=== PATIENT | male | born 1975 | race Caucasian/White ===

== ENCOUNTER 2017-06-30 16:22 | Emergency (ER) | payer BC ==
[~2017-06-30] VITALS: Ht 185.4 cm; Wt 120.0 kg
[2017-06-30] MEDS ORDERED: TEST200V21 IM (16:46)
[2017-06-30 17:16] LABS: BASOPHILS # (AUTO) 0.03 x10^3/uL (0-0.1); BASOPHILS % (AUTO) 0 % (0-1); EOSINOPHILS # (AUTO) 0.03 x10^3/uL (0-0.4); EOSINOPHILS % (AUTO) 0 % (1-7); LYMPHOCYTES # (AUTO) 0.86 x10^3/uL (1-3.4); LYMPHOCYTES % (AUTO) 6 % (22-44); MD NO; MEAN CORPUSCULAR HEMOGLOBIN 29.8 pg (27.5-34.5); MEAN CORPUSCULAR HGB CONC 34.2 g/dL (33.2-36.2); MEAN CORPUSCULAR VOLUME 86.9 fL (81-97); MEAN PLATELET VOLUME 9.3 fL (7.4-10.4); MONOCYTES # (AUTO) 1.02 x10^3/uL (0.2-0.8); MONOCYTES % (AUTO) 7 % (2-9); NEUTROPHILS # (AUTO) 11.88 x10^3/uL (1.8-6.8); NEUTROPHILS % (AUTO) 86 % (42-75); PLATELET COUNT 260 x10^3/uL (130-400); RED BLOOD COUNT 5.51 x10^6/uL (4.38-5.82); RED CELL DISTRIBUTION WIDTH 15.2 % (9.4-14.8)
[2017-06-30 17:24] LABS: ALANINE AMINOTRANSFERASE 69 U/L (12-78); ALBUMIN 3.7 g/dL (3.4-5.0); ANION GAP 10 mmol/L (5-15); CALCIUM 8.7 mg/dL (8.5-10.1); CHLORIDE 109 mmol/L (98-107); CREATININE 1.44 mg/dL (0.7-1.3)
[2017-06-30 17:29] LABS: ALKALINE PHOSPHATASE 42 U/L (45-117); BILIRUBIN,TOTAL 1.5 mg/dL (0.2-1.0); TOTAL PROTEIN 7.3 g/dL (6.4-8.2); TROPONIN I 0.063 ng/mL (0.000-0.045)
[2017-06-30 18:11] VITALS: BP 109/63
== END 2017-06-30 18:12 | disposition home or self-care (01) ==
LOC: ED 17:07
DX: R07.2 Precordial pain (principal); F14.10 Cocaine abuse, uncomplicated; Z79.82 Long term (current) use of aspirin
CPT/HCPCS: 36415; 71045; 80053; 84484; 85025; 93005; 99285

== ENCOUNTER 2020-01-07 12:34 | Outpatient (CLI) | payer BC ==
[~2020-01-07 12:34] MED LIST: TEST200V21 IM
[2020-01-07] MEDS ORDERED: LIDOCAINE-MPF 1%, 5ML ONE (12:43)
[2020-01-07] MEDS ORDERED: ROPivacaine/PF 0.2%, 10 ML ONE (12:44)
[2020-01-07] MEDS ORDERED: SODIUM BICARBONATE 4.2%, 5ML ONE (12:45)
[2020-01-07] MEDS ORDERED: OMNIPAQUE 300 MG/ML, 10ML VIAL ONE (13:51)
[2020-01-07] MEDS ORDERED: GADOTERATE 2.5 MMOL/5 ML VIAL ONE (13:51)
== END 2020-01-07 23:59 | disposition home or self-care (01) ==
LOC: RAD 12:34
PROVIDERS: ATTEND Nurse Practitioner
DX: M25.511 Pain in right shoulder (principal); S46.011A Strain of muscle(s) and tendon(s) of the rotator cuff of right shoulder, initial encounter; M19.011 Primary osteoarthritis, right shoulder; X50.0XXA Overexertion from strenuous movement or load, initial encounter; Y93.B9 Activity, other involving muscle strengthening exercises; Y92.89 Other specified places as the place of occurrence of the external cause; Y99.8 Other external cause status
CPT/HCPCS: 23350; 73040; 73222; A9575; J2795; Q9967

== ENCOUNTER → 2020-01-26 | Outpatient (CLI) | payer BC ==
[~2020-01-26] MED LIST changes: +AMLO2.5T5 PO; +HYDR-3246 PO; +TRAM50TA2 PO
== END | disposition home or self-care (01) ==
LOC: STAR 09:25
PROVIDERS: ATTEND Anesthesiology
DX: Z01.818 Encounter for other preprocedural examination (principal); Z11.59 Encounter for screening for other viral diseases
CPT/HCPCS: 36415; 87635

== ENCOUNTER 2020-01-29 10:23 | Day surgery (SDC) | payer BC ==
[~2020-01-29] VITALS: Ht 182.9 cm; Wt 116.4 kg
[~2020-01-29 10:23] MED LIST changes: +BUPIVACAINE/PF-EPI 0.5% 1:200K ONE; +LIDOCAINE 1%-EPI 1:100K, 20ML ONE
[2020-01-29 10:42] VITALS: BP 126/83
[2020-01-29] MEDS ORDERED: LACTATED RINGERS 1,000 ML IV SCH (10:47)
[2020-01-29] MEDS ORDERED: MELOXICAM PO (10:48)
[2020-01-29] MEDS ORDERED: CHLORHEXIDINE 15 ML UDC MM ONE (11:00)
[2020-01-29] MEDS ORDERED: MIDAZOLAM 1 MG/ML, 2ML ONE (11:27)
[2020-01-29] MEDS ORDERED: FENTANYL PF 100 MCG/2ML ONE (11:27)
[2020-01-29] MEDS ORDERED: EPHEDRINE 50 MG/ML, 1ML ONE (12:17)
[2020-01-29] MEDS ORDERED: ROCURONIUM 10 MG/ML,10ML ONE (12:17)
[2020-01-29] MEDS ORDERED: PHENYLEPHRINE 10 MG/ML ONE (12:17)
[2020-01-29] MEDS ORDERED: OXYcodone 5 MG/5 ML ORAL.SOL UDC PO PRN (13:00)
[2020-01-29] MEDS ORDERED: HYDROmorphone 1 MG/ML, 1ML INJ IVPush PRN (13:00)
[2020-01-29] MEDS ORDERED: ALBUTEROL SULFATE 2.5 MG/3 ML NPPB PRN (13:00)
[2020-01-29] MEDS ORDERED: ACETAMINOPHEN 325 MG TABLET PO PRN (13:00)
[2020-01-29] MEDS ORDERED: LORazepam 2 MG/ML, 1ML IVPush PRN (13:00)
[2020-01-29] MEDS ORDERED: PROMETHAZINE 25 MG/ML, 1ML IVPush PRN (13:00)
[2020-01-29] MEDS ORDERED: hydrALAzine 20 MG/ML, 1ML IV PRN (13:00)
[2020-01-29] MEDS ORDERED: MEPERIDINE/PF 25MG/0.5ML IVPush PRN (13:00)
[2020-01-29] MEDS ORDERED: LABETALOL 5MG/ML, 20ML IV PRN (13:00)
[2020-01-29] MEDS ORDERED: FENTANYL PF 100 MCG/2ML IV PRN (13:00)
[2020-01-29] MEDS ORDERED: LIDOCAINE-MPF 2% ,5ML ONE (13:17)
[2020-01-29] MEDS ORDERED: BUPIVACAINE/PF 0.5% ONE (13:17)
[2020-01-29] MEDS ORDERED: DEXAMETHASONE 4 MG/ML, 1ML ONE (13:19)
[2020-01-29] MEDS ORDERED: PROPOFOL 10 MG/ML, 20ML ONE (13:19)
[2020-01-29] MEDS ORDERED: ONDANSETRON 2MG/ML, 2ML ONE (13:19)
[2020-01-29] MEDS ORDERED: SUCCINYLCHOLINE 20 MG/ML, 10ML ONE (13:19)
[2020-01-29] MEDS ORDERED: CEFAZOLIN 1,000 MG ONE (13:19)
[2020-01-29] MEDS ORDERED: PROMETHAZINE 25 MG/ML, 1ML ONE (15:30)
[2020-01-29] MEDS ORDERED: LIDOCAINE/PF 1%-EPI 1:200K, 30 ML ONE (17:05)
== END 2020-01-29 18:30 | disposition home or self-care (01) ==
LOC: OUT 10:23
PROVIDERS: ATTEND Orthopaedic Surgery
DX: S46.011A Strain of muscle(s) and tendon(s) of the rotator cuff of right shoulder, initial encounter (principal); G89.18 Other acute postprocedural pain; S43.431A Superior glenoid labrum lesion of right shoulder, initial encounter; M65.811 Other synovitis and tenosynovitis, right shoulder; M75.41 Impingement syndrome of right shoulder; M19.011 Primary osteoarthritis, right shoulder; M75.51 Bursitis of right shoulder; I10 Essential (primary) hypertension; Z79.1 Long term (current) use of non-steroidal anti-inflammatories (NSAID); Z79.891 Long term (current) use of opiate analgesic; Z79.899 Other long term (current) drug therapy; X50.1XXA Overexertion from prolonged static or awkward postures, initial encounter; Y93.B3 Activity, free weights; Y92.89 Other specified places as the place of occurrence of the external cause; Y99.8 Other external cause status
CPT/HCPCS: 29823; 29824; 29826; 29827; 64415; 71045; C1713; J0330; J0690; J1100; J2250; J2370; J2405; J2550; J2704; J3010; J3490; J7120